=== PATIENT | female | born 1970 | race Caucasian/White ===

== ENCOUNTER 2018-05-25 15:32 | Outpatient (CLI) | payer BC ==
[~2018-05-25] VITALS: Ht 160 cm; Wt 91.2 kg
[2018-05-25 16:10] LABS: TOTAL HEMOGLOBIN 14.9 G/dl (12.0-16.0)
[2018-05-25] MEDS ORDERED: albuterol 2.5 MG/3 ML nebule NEB ONE (16:25)
== END 2018-05-25 23:59 | disposition home or self-care (01) ==
LOC: RT 15:32
PROVIDERS: ATTEND Internal Medicine Pulmonary Disease
DX: J44.9 Chronic obstructive pulmonary disease, unspecified (principal); F17.210 Nicotine dependence, cigarettes, uncomplicated; R06.09 Other forms of dyspnea
CPT/HCPCS: 85018; 94060; 94727; 94729; 94760